=== PATIENT | female | born 1965 | race Caucasian/White ===

== ENCOUNTER → 2020-12-10 | Outpatient (CLI) | payer OTHER ==
[~2020-12-10] MED LIST: BENTYL 20MG TAB20 MG PO; ZOFRAN ODT 4 MG4 MG PO
== END ==
LOC: SLEEP 15:20
DX: G47.33 Obstructive sleep apnea (adult) (pediatric) (principal); I10 Essential (primary) hypertension; E11.9 Type 2 diabetes mellitus without complications; E03.9 Hypothyroidism, unspecified; E78.5 Hyperlipidemia, unspecified; E66.9 Obesity, unspecified; F17.200 Nicotine dependence, unspecified, uncomplicated; Z88.0 Allergy status to penicillin
CPT/HCPCS: 95811

== ENCOUNTER 2021-03-29 21:50 | Emergency (ER) | payer OTHER ==
[2021-03-30 00:12] LABS: HEMOGLOBIN 14.8 gm/dl (12.3-15.3); RED BLOOD COUNT 4.8 M/UL (4.00-5.10); WHITE BLOOD COUNT 13.2 K/UL (4.5-11.0)
[2021-03-30] MEDS ORDERED: DOXYCYCLINE HY100 M2 PO (07:18)
[2021-03-30] MEDS ORDERED: PROAIR HFA8.5 GM INH (07:18)
[2021-03-30] MEDS ORDERED: CEFDINIR300 MG PO (07:18)
== END 2021-03-30 07:26 | disposition home or self-care (01) ==
LOC: ER1 21:50
PROVIDERS: Physician Assistant Medical
DX: J18.9 Pneumonia, unspecified organism (principal); E11.9 Type 2 diabetes mellitus without complications; E03.9 Hypothyroidism, unspecified; Z88.0 Allergy status to penicillin; Z20.822 Contact with and (suspected) exposure to COVID-19; Z90.710 Acquired absence of both cervix and uterus
CPT/HCPCS: 71045; 80053; 83605; 85025; 87040; 99285; J7030; U0002